=== PATIENT | female | born 1965 | race Caucasian/White ===

== ENCOUNTER 2016-07-11 07:01 | Day surgery (SDC) | payer MEDICARE, OTHER ==
[~2016-07-11 07:01] MED LIST: LACTATED RINGERS 1,000 ML IV SCH; LIDOCAINE 1% 20 ML VIAL (10MG/ML) FOR IV START INTRADERMA PRN
[2016-07-11 07:24] VITALS: TEMP 97.4
[2016-07-11] MEDS ORDERED: PROPOFOL 10 MG/ML 20 ML VIAL IV ONE (07:35)
[2016-07-11] MEDS ORDERED: ePHEDrine 50 MG/ML 1 ML AMP ONE (07:35)
[2016-07-11] MEDS ORDERED: LIDOCAINE 1% INJ 10MG/ML (20 ML MDV) ONE (07:35)
--- NOTE | 2016-07-11 07:51 | P.GSHP ---
History of Present Illness H&P Date: 07/11/16 CHIEF COMPLAINT: Colon screen HISTORY OF PRESENT ILLNESS: The patient is a 50-year-old female who presents for colon screen. Lower endoscopy was offered for further evaluation and management. PAST MEDICAL HISTORY: Please see list. PAST SURGICAL HISTORY: Please see list. MEDICATIONS: Please see list. ALLERGIES: Please see list. SOCIAL HISTORY: No illicit drug use FAMILY HISTORY: No reports of Crohn disease or ulcerative colitis. REVIEW OF ORGAN SYSTEMS: CONSTITUTIONAL: No reports of fevers or chills. PHYSICAL EXAM: VITAL SIGNS: Stable GENERAL: Well-developed pleasant in no acute distress. HEENT: No scleral icterus. Extraocular movements grossly intact. Moist buccal mucosa. NECK: Supple without lymphadenopathy. CHEST: Unlabored respirations. Equal bilateral excursions. CARDIOVASCULAR: Regular rate and rhythm. Distal 2+ pulses. ABDOMEN: Soft, nontender, nondistended. MUSCULOSKELETAL: No clubbing, cyanosis, or edema. ASSESSMENT: 1. Colon screen. PLAN: 1. Recommend proceeding with a lower endoscopy Past Medical History Past Medical History: Hyperlipidemia, Hypertension Additional Past Medical History / Comment(s): Polycystic Ovarian Disease, TMJ, tinnitus History of Any Multi-Drug Resistant Organisms: None Reported Past Surgical History: Bariatric Surgery, Breast Surgery, Tonsillectomy Additional Past Surgical History / Comment(s): LAB BAND; lipoma removed from her back, moles removed from her breast Past Anesthesia/Blood Transfusion Reactions: No Reported Reaction Past Psychological History: Anxiety, Bipolar, Depression, Panic Disorder Smoking Status: Light tobacco smoker Past Alcohol Use History: None Reported Additional Past Alcohol Use History / Comment(s): OCCASIONAL SMOKES 1-2 CIG PER MONTH. Past Drug Use History: None Reported Additional Drug Use History / Comment(s): Pt. denies substance abuse. - Past Family History Mother Family Medical History: Cancer Additional Family Medical History / Comment(s): skin and uterine cancer Medications and Allergies Home Medications Medication Instructions Recorded Confirmed Type lamoTRIgine [LaMICtal] 200 mg PO BID 07/20/13 07/11/16 History [place]-3 Fatty Acids/Fish Oil [Fish 1 tab PO DAILY 03/24/14 07/11/16 History Oil 1,000 mg Softgel] Lipitor Unknown Dose 20 mg PO HS 07/06/16 07/11/16 History Losartan/Hydrochlorothiazide 1 tab PO QAM 07/06/16 07/11/16 History [Losartan-Hctz 100-25 mg Tab] Multivitamins, Thera [Multivitamin 1 tab PO DAILY 07/06/16 07/11/16 History (formulary)] OLANZapine [ZyPREXA] 12.5 mg PO HS 07/06/16 07/11/16 History Sertraline [Zoloft] 125 mg PO HS 07/06/16 07/11/16 History Topiramate [Topamax] 75 mg PO BID 07/06/16 07/11/16 History Allergies Allergy/AdvReac Type Severity Reaction Status Date / Time influenza virus vaccine, Allergy Swelling Verified 07/06/16 15:35 specific [influenza virus vacc,specific] ciprofloxacin [From Cipro] AdvReac BLOOD IN Verified 07/06/16 16:02 STOOL Surgical - Exam Vital Signs Temp Pulse Resp BP Pulse Ox 97.4 F L 93 18 105/74 95 07/11/16 07:23 07/11/16 07:23 07/11/16 07:23 07/11/16 07:23 07/11/16 07:23
--- NOTE | 2016-07-11 08:10 | P.PCN ---
Date of Procedure: 07/11/16 Preoperative Diagnosis: Postoperative Diagnosis: Procedure(s) Performed: Implants: Indications for Procedure: Operative Findings: Description of Procedure: PREOPERATIVE DIAGNOSIS: Colonoscopy screening. POSTOPERATIVE DIAGNOSIS: Colonoscopy screening. Diverticulosis, scattered. Cecal polyp OPERATION: Colonoscopy to the ileocecal valve and appendiceal orifice. Colonoscopy with cold forceps biopsy along the cecum. SURGEON: Alejandrina Mast MD. ANESTHESIA: MAC. INDICATIONS: The patient is a 50-year-old female who presents for colonoscopy screening. Benefits and risks were described and informed consent was obtained. DESCRIPTION OF PROCEDURE: The patient had undergone Gatorade, MiraLAX and Dulcolax prep. She had been brought into the operating room and laid in the left lateral decubitus position. After adequate intravenous sedation, the rectum was examined with 2% lidocaine jelly. No external hemorrhoids were encountered. The rectal tone was within normal limits. No lesions were palpated in the rectal vault. An Olympus colonoscope was advanced until the ileocecal valve and appendiceal orifice were clearly viewed. The prep was excellent with clear visualization of the mucosal folds. The scope was removed with visualization of each mucosal fold. Scattered diverticulosis was encountered. Hyperplastic cecal polyp 3-mm along the cecum was cold forceps biopsy to completion. No evidence of focal colitis was found. Retroflexion of the scope demonstrated grade 1 internal hemorrhoids without active bleeding or inflammation. The colon was desufflated. The patient had tolerated the procedure well. Withdrawal time was over 6 minutes. FINDINGS: Internal hemorrhoids, grade 1 No external prolapsed hemorrhoids. No arteriovenous malformations. Hyperplastic cecal polyp 3-mm along the cecum was cold forceps biopsy to completion. No focal colitis. RECOMMENDATIONS: Lower endoscopy in 5 to 8 years per screening guidelines, 2021. Plan - Discharge Summary New Discharge Prescriptions: No Action lamoTRIgine [LaMICtal] 200 mg PO BID [place]-3 Fatty Acids/Fish Oil [Fish Oil 1,000 mg Softgel] 1 tab PO DAILY Melatonin 3 mg PO HS #15 tab Sertraline [Zoloft] 125 mg PO HS Topiramate [Topamax] 75 mg PO BID OLANZapine [ZyPREXA] 12.5 mg PO HS Multivitamins, Thera [Multivitamin (formulary)] 1 tab PO DAILY Losartan/Hydrochlorothiazide [Losartan-Hctz 100-25 mg Tab] 1 tab PO QAM Lipitor Unknown Dose 20 mg PO HS Discharge Medication List lamoTRIgine [LaMICtal] 200 mg PO BID 07/20/13 [History] [place]-3 Fatty Acids/Fish Oil [Fish Oil 1,000 mg Softgel] 1 tab PO DAILY [History] Melatonin 3 mg PO HS #15 tab 04/07/14 [Rx] Lipitor Unknown Dose 20 mg PO HS 07/06/16 [History] Losartan/Hydrochlorothiazide [Losartan-Hctz 100-25 mg Tab] 1 tab PO QAM [History] Multivitamins, Thera [Multivitamin (formulary)] 1 tab PO DAILY 07/06/16 [History ] OLANZapine [ZyPREXA] 12.5 mg PO HS 07/06/16 [History] Sertraline [Zoloft] 125 mg PO HS 07/06/16 [History] Topiramate [Topamax] 75 mg PO BID 07/06/16 [History] Patient Instructions/Handouts: *[facility] - (Anesthesia) Endoscopy Discharge Instructions, Colonoscopy (DC)
[2016-07-11 08:17] VITALS: RESP 16
[2016-07-11 08:44] VITALS: BP 106/75; PULSE 67
== END 2016-07-11 09:19 | disposition home or self-care (01) ==
LOC: ORWHC2ENDO 07:01
PROVIDERS: ATTEND Surgery Plastic and Reconstructive Surgery
DX: Z12.11 Encounter for screening for malignant neoplasm of colon (principal); K63.5 Polyp of colon; K57.30 Diverticulosis of large intestine without perforation or abscess without bleeding; K64.0 First degree hemorrhoids; K21.9 Gastro-esophageal reflux disease without esophagitis; I10 Essential (primary) hypertension; E78.5 Hyperlipidemia, unspecified; F41.9 Anxiety disorder, unspecified; F32.9 Major depressive disorder, single episode, unspecified; E28.2 Polycystic ovarian syndrome; F17.210 Nicotine dependence, cigarettes, uncomplicated; Z79.899 Other long term (current) drug therapy; Z88.1 Allergy status to other antibiotic agents; Z88.7 Allergy status to serum and vaccine
CPT/HCPCS: 81025; 88305; 45380; J2001; J2704

== ENCOUNTER → 2016-12-20 | Outpatient (CLI) | payer MEDICARE ==
--- NOTE | 2016-12-21 13:58 | MM ---
Reason for exam: screening (asymptomatic). Last mammogram was performed 1 year ago. Physical Findings: A clinical breast exam by your physician is recommended on an annual basis and results should be correlated with mammographic findings. MG 3D Screening Mammo W/Cad Bilateral CC and MLO view(s) were taken. Prior study comparison: December 06, 2015, bilateral MG 3d screening mammo w/cad. October 26, 2014, bilateral MG screening mammo w CAD. The breast tissue is heterogeneously dense. This may lower the sensitivity of mammography. No suspicious abnormality. No significant changes when compared with prior studies. ASSESSMENT: Negative, BI-RAD 1 RECOMMENDATION: Routine screening mammogram of both breasts in 1 year.
== END | disposition home or self-care (01) ==
LOC: RADMAMWWP 13:49
PROVIDERS: ATTEND Family Medicine
DX: Z12.31 Encounter for screening mammogram for malignant neoplasm of breast (principal)
CPT/HCPCS: 77063; G0202

== ENCOUNTER → 2017-12-24 | Outpatient (CLI) | payer MEDICARE ==
--- NOTE | 2017-12-26 10:39 | MM ---
Reason for exam: screening (asymptomatic). Last mammogram was performed 1 year ago. History: Patient is nulliparous. MG 3D Screening Mammo W/Cad Bilateral CC and MLO view(s) were taken. Prior study comparison: December 20, 2016, bilateral MG 3d screening mammo w/cad. December 06, 2015, bilateral MG 3d screening mammo w/cad. No significant changes when compared with prior studies. ASSESSMENT: Benign, BI-RAD 2 RECOMMENDATION: Routine screening mammogram of both breasts in 1 year.
== END ==
LOC: RADMAMWWP 11:34
PROVIDERS: ATTEND Family Medicine
DX: Z12.31 Encounter for screening mammogram for malignant neoplasm of breast (principal)
CPT/HCPCS: 77063; 77067

== ENCOUNTER → 2019-01-19 | Outpatient (CLI) | payer MEDICARE, OTHER ==
--- NOTE | 2019-01-20 08:42 | MM ---
Reason for exam: screening (asymptomatic). Last mammogram was performed 1 year and 1 month ago. History: Patient is nulliparous. Physical Findings: A clinical breast exam by your physician is recommended on an annual basis and results should be correlated with mammographic findings. MG 3D Screening Mammo W/Cad Bilateral CC and MLO view(s) were taken. Prior study comparison: December 24, 2017, bilateral MG 3d screening mammo w/cad. December 20, 2016, bilateral MG 3d screening mammo w/cad. The breast tissue is heterogeneously dense. This may lower the sensitivity of mammography. Finding #1: Questionable architectural distortion in the upper inner quadrant of the left breast. Finding #2: There are typically benign calcifications in the right breast. ASSESSMENT: Incomplete: need additional imaging evaluation, BI-RAD 0 RECOMMENDATION: Special view mammogram of the left breast. If lesion persists on supplemental views, image directed ultrasound is recommended. [facility] will attempt to contact patient to return for supplemental views and ultrasound if indicated.
== END | disposition home or self-care (01) ==
LOC: RADMAMWWP 15:07
PROVIDERS: ATTEND Family Medicine
DX: Z12.39 Encounter for other screening for malignant neoplasm of breast (principal)
CPT/HCPCS: 77063; 77067

== ENCOUNTER → 2019-01-27 | Outpatient (CLI) | payer MEDICARE, OTHER ==
[2019-01-27 14:46] VITALS: BP 135/85; PULSE 85; RESP 16; TEMP 99.2; BMI 35.5
--- NOTE | 2019-01-27 21:11 | P.BASOAP ---
Subjective Progress Note Date: 01/27/19 Principal diagnosis: Morbid obesity Patient returns for evaluation. Patient underwent lap band in 2007 and sleeve gastrectomy September 2016. She was last seen in August. She has gained weight recently. She states it's related to bad habits with eating fast food in sweets. General a recent carpal tunnel release. Acids. Rarely with reflux symptoms. No nausea or vomiting. No pain. Objective - Vital Signs Vital signs: Vital Signs Temp 99.2 F 01/27/19 14:41 Pulse 85 01/27/19 14:41 Resp 16 01/27/19 14:41 BP 135/85 01/27/19 14:41 Pulse Ox Intake & Output 01/27/19 01/27/19 01/28/19 06:59 18:59 06:59 Weight 102.965 kg - Exam Abdomen: Soft, nontender, nondistended Assessment/Plan (1) Morbid obesity Narrative/Plan: Patient overall doing fairly well. She will meet with dietitian today. Continue dietary and exercise regimen. Follow-up 2 months. Plan: Date: 01/27/19 Initial Weight: 127.006 kg Initial BMI: 43.8 Current Weight: 102.965 kg Current BMI: 35.5 Type of Surgery: Vertical Sleeve Gastrectomy Total Volume in Band: Previous Volume: Volume Removed: Volume Added: Band Size:
== END | disposition home or self-care (01) ==
LOC: BARWHC3 13:53
PROVIDERS: ATTEND Surgery
DX: E66.01 Morbid (severe) obesity due to excess calories (principal); Z68.35 Body mass index [BMI] 35.0-35.9, adult
CPT/HCPCS: 97802; G0463; 99211

== ENCOUNTER → 2019-02-02 | Outpatient (CLI) | payer MEDICARE, OTHER ==
--- NOTE | 2019-02-02 10:22 | MM ---
Reason for exam: additional evaluation requested from abnormal screening. Last mammogram was performed less than 1 month ago. History: Patient is nulliparous. Physical Findings: Nurse did not find any significant physical abnormalities on exam. MG 3D Work Up W/Cad LT Spot compression CC and LM view(s) were taken of the left breast. Prior study comparison: January 19, 2019, bilateral MG 3d screening mammo w/cad. December 24, 2017, bilateral MG 3d screening mammo w/cad. There are scattered fibroglandular densities. The possible medial distortion does not persist. These results were verbally communicated with the patient and result sheet given to the patient on 02/02/19. ASSESSMENT: Negative, BI-RAD 1 RECOMMENDATION: Return to routine screening mammogram schedule for both breasts.
== END | disposition home or self-care (01) ==
LOC: RADMAMWWP 08:51
PROVIDERS: ATTEND Family Medicine
DX: R92.8 Other abnormal and inconclusive findings on diagnostic imaging of breast (principal)
CPT/HCPCS: 77065; G0279; 77061

== ENCOUNTER → 2019-11-11 | Outpatient (CLI) | payer MEDICARE, OTHER ==
[2019-11-11 08:54] LABS: Basophils # (A) 0.1 k/uL (0-0.2); Basophils % (A) 1 %; Eosinophils % (A) 0 %; HCT 42.7 % (34.0-46.0); HGB 13.9 gm/dL (11.4-16.0); Lymphocytes # (A) 1.2 k/uL (1.0-4.8); Lymphocytes % (A) 29 %; MCHC 32.5 g/dL (31.0-37.0); MCV 92.4 fL (80.0-100.0); Mean Platelet Volume 7.7; Monocytes # (A) 0.2 k/uL (0-1.0); Monocytes % (A) 5 %; Neutrophils # (A) 2.7 k/uL (1.3-7.7); Neutrophils % (A) 64 %; Platelet Count 163 k/uL (150-450); RBC 4.62 m/uL (3.80-5.40); RDW 12.5 % (11.5-15.5); WBC 4.2 k/uL (3.8-10.6)
[2019-11-11 09:03] LABS: INR 0.9 (<1.2); Partial Thromboplastin Time 23.6 sec (22.0-30.0); Prothrombin Time 9.8 sec (9.0-12.0)
[2019-11-11 09:23] LABS: Appearance,Urine Cloudy (Clear); Bacteria,Urine Rare /hpf; Bilirubin,Urine Negative (Negative); Blood,Urine Negative (Negative); Color,Urine Yellow; Glucose,Urine (UA) Negative (Negative); Ketones,Urine Negative (Negative); Leukocyte Esterase,Urine Trace (Negative); Mucus,Urine Rare /hpf; Nitrite,Urine Negative (Negative); PH, Urine 8.5 (5.0-8.0); Protein,Urine Negative (Negative); RBC,Urine 3 /hpf (0-5); Specific Gravity,Urine 1.016 (1.001-1.035); Squamous Epithelial Cell,Urine 1 /hpf (0-4); Urobilinogen,Urine <2.0 mg/dL (<2.0); WBC,Urine 3 /hpf (0-5)
[2019-11-11 09:28] LABS: Calcium 9.2 mg/dL (8.4-10.2); Potassium 4.9 mmol/L (3.5-5.1)
--- NOTE | 2019-11-11 09:37 | XR ---
EXAMINATION TYPE: XR chest 2V DATE OF EXAM: 11/11/2019 COMPARISON: None HISTORY: Z01.818, herniated nucleus pulposus C5-6 TECHNIQUE: Frontal and lateral views of the chest are obtained. FINDINGS: There is no focal air space opacity, pleural effusion, or pneumothorax seen. The cardiac silhouette size is within normal limits. The osseous structures are intact, there is thoracic spond ylosis. IMPRESSION: No acute cardiopulmonary process.
== END | disposition home or self-care (01) ==
LOC: LABPAT 07:18
PROVIDERS: ATTEND Orthopaedic Surgery Orthopaedic Surgery of the Spine
DX: Z01.818 Encounter for other preprocedural examination (principal); Z51.81 Encounter for therapeutic drug level monitoring; M50.222 Other cervical disc displacement at C5-C6 level; Z79.01 Long term (current) use of anticoagulants
CPT/HCPCS: 36415; 71046; 80048; 81001; 85025; 85610; 85730

== ENCOUNTER 2019-11-18 08:19 | Day surgery (SDC) | payer MEDICARE, OTHER ==
[2019-11-11 13:18] VITALS: BMI 38.0
[~2019-11-18 08:19] MED LIST changes: -LIDOCAINE 1% 20 ML VIAL (10MG/ML) FOR IV START INTRADERMA PRN; +MIDAZOLAM 2 MG/2 ML VIAL IV PRN; +ceFAZolin 1,000 MG in SODIUM CHLORIDE 0.9% IRRIGATIO 1,000 ML IRRIGATION ONE
[2019-11-18] MEDS: LIDOCAINE 1% (10MG/ML) FOR IV START INTRADERMA PRN ×2 (09:20→09:33)
[2019-11-18] MEDS: ONDANSETRON 4 MG/2 ML VIAL IVP ONE ×2 (09:20→09:33)
[2019-11-18] MEDS: DEXAMETHASONE SOD PHOSPHATE 10 MG/ML 1 ML VIAL IV ONE ×2 (09:33→13:32)
[2019-11-18] MEDS ORDERED: MIDAZOLAM 2 MG/2 ML VIAL ONE (10:08)
[2019-11-18] MEDS ORDERED: PHENYLEPHRINE-0.9% NACL SYG 1 MG/10 ML SYRINGE ONE (10:08)
[2019-11-18] MEDS ORDERED: PROPOFOL 10 MG/ML 20 ML VIAL IV ONE (10:08)
[2019-11-18] MEDS ORDERED: LIDOCAINE 1% INJ 10MG/ML (20 ML MDV) ONE (10:08)
[2019-11-18] MEDS ORDERED: fentaNYL (PF) 50 MCG/ML 2 ML AMP ONE ×2 (10:08)
[2019-11-18] MEDS ORDERED: SUCCINYLCHOLINE CHLORIDE 100 MG/5 ML SYR IV ONE (10:08)
[2019-11-18] MEDS ORDERED: ePHEDrine SULFATE/0.9% NACL/PF 50 MG/5 ML SYRINGE IV ONE (10:08)
[2019-11-18] MEDS ORDERED: GELATIN SPONGE,ABSORB (LARGE) 1 EACH SPONGE TOPICAL ONE (10:13)
[2019-11-18] MEDS ORDERED: LIDOCAINE 0.5%-EPI 1:200,000 50 ML VIAL SQ ONE (10:13)
[2019-11-18] MEDS ORDERED: THROMBIN (BOVINE) 5,000 UNIT VIAL TOPICAL ONE (10:13)
[2019-11-18] MEDS ORDERED: LACTATED RINGERS 1,000 ML IV ONE (11:29)
[2019-11-18] MEDS ORDERED: ACETAMINOPHEN TAB 325 MG TAB PO PRN (11:50)
[2019-11-18] MEDS ORDERED: ONDANSETRON 4 MG/2 ML VIAL IVP PRN (11:50)
[2019-11-18] MEDS ORDERED: HYDROmorphone 0.5 MG/0.5 ML SYRINGE IVP PRN (11:50)
[2019-11-18] MEDS ORDERED: BENZOCAINE/MENTHOL LOZENG 1 EACH LOZENGE MUCOUS MEM PRN (11:50)
[2019-11-18] MEDS ORDERED: HYDROcodone/APAP 5-325MG 1 EACH TAB PO PRN (11:50)
--- NOTE | 2019-11-18 11:50 | P.OP ---
Date of Procedure: 11/18/19 Preoperative Diagnosis: Herniated nucleus pulposis C5 6, right upper extremity radiculopathy, right upper extremity weakness, degenerative disc disease, neck pain Postoperative Diagnosis: Same Anesthesia: GETA Pathology: none sent Condition: stable Disposition: PACU Description of Procedure: BRIEF OPERATIVE NOTE Preoperative Diagnosis:Herniated nucleus pulposis C5 6, right upper extremity radiculopathy, right upper extremity weakness, degenerative disc disease, neck pain Postoperative Diagnosis:Herniated nucleus pulposis C5 6, right upper extremity radiculopathy, right upper extremity weakness, degenerative disc disease, neck pain Procedure: Anterior cervical decompression with discectomy and fusion C5 6 Placement of interbody graft C5 6 Application of anterior cervical plate C5 6 Surgeon: Dr. Sylvester [employer] Operator: Selma Lisa is present throughout the entire the case persistence during positioning, dissection, exposure, visualization, and all crucial elements of the case as well as closure. Anesthesia: General anesthesia Estimated blood loss: Approximately 50 mL Complications: None apparent Components implanted: K2M [place] anterior cervical plate with screws and VIkos interbody allograft bone graft Disposition: To recovery room in good stable condition. OPERATIVE INDICATIONS The patient has had long-standing issues in their neck and upper extremities. His been having significant worsening of her upper extremity particularly on the right side with some tingling and weakness. She is found have a large disc herniations at C5 6 with correlate well with her neck and upper extremity symptoms. She is not having any prolonged benefit despite aggressive conservative care. The patient has been through conservative treatment. We discussed various treatment options including surgery, and the patient wishes to proceed with surgery We discussed the risk, patient's alternatives and benefits of surgery including but not limited to, risk of bleeding risk of infection, risk of need for further surgery, risk of decreased, loss of motion, muscle function, malunion nonunion, hardware failure, nerve damage, paralysis, heart attack, and . OPERATIVE SUMMARY After discussing all the risks, patient alternatives and benefits at length, the patient elected to proceed with surgical intervention, signed informed consent, and presented for their procedure. The patient was seen and examined in the preoperative holding area and the surgical site was marked. The patient was given antibiotics and brought to the operating room. The patient was positioned on the operating room table in a supine position being careful to pad any bony prominences and pressure points. The patient was sedated and intubated by anesthesia in standard fashion. Once the airway and C- spine were stabilized the patient's arms were padded and tucked at her side, with her shoulders gently taped. The head was placed in a donut pad with the neck in good neutral alignment and position. We were careful to maintain the patient's cervical spine and good neutral alignment and position throughout. The patient was prepped and draped in a normal standard fashion. An appropriate timeout and keystone protocol performed. We were able to proceed with the surgery. The local wound area was infiltrated with local anesthetic. An incision was made transversely approximately 2-1/2 cm over the appropriate levels at C6. Dissection was taken down subcutaneously to the level of the platysma which was split in line with its fibers. Dissection was taken with a carotid approach, with the trachea and esophagus medial and the carotid sheath laterally. We dissected down to the anterior surface of the vertebral bodies. Intraoperative x-ray was taken which showed a marker at the appropriate level at C5 6 with the C5 vertebrae marked. With the appropriate level positively confirmed, at C5 6 we were able to proceed with discectomy at the appropriate levels. All of the operative levels were exposed appropriately. The patient had all their twitches back, and there was no evidence of recurrent laryngeal issue. The wound was copiously irrigated and suctioned dry as had been done periodically throughout the case. At the appropriate level of C5 6 I established an annulotomy with an 11 blade scalpel. A discectomy was performed with a combination of pituitary rongeurs, curettes, a high-speed bur, and Kerrison rongeurs. The posterior longitudinal ligament was taken down as were any posterior osteophytes. Note was made of disc herniation with disc protrusion and posterior spurring. These issues were removed with the decompression and discectomy. This gave good central and bilateral foraminal decompression. There is no evidence of any dural tear or leak. The endplates were prepared with a high-speed bur. With the endplates in good parallel position, I was able to size for the appropriate size interbody graft. The wound was irrigated and suctioned dry the graft was prepared and malleted into position. It had good alignment and position with the anterior surface flush with the anterior surface of the vertebral bodies of C5 6. With the grafts intact, I was able to measure and contour and appropriate sized plate. The plate was positioned at the midline over the appropriate levels of C5 6. Screw holes were established with a hand drill and drill guide. Screws were placed in good alignment and position with excellent bony purchase. They were seated under the locking device. The construct was checked and found to be stable. Intraoperative x-ray was taken which showed good alignment and position of the implants at the appropriate levels. There was no evidence of any dural tear or leak. Good hemostasis was maintained. The wound was copiously irrigated and suctioned dry as had been done periodically throughout the case. The platysma was closed with absorbable suture. The subcutaneous tissue was closed. The subcuticular tissue was closed with absorbable suture. The wound was cleaned and dried and dressed appropriately. A soft cervical collar was placed appropriately. The patient was woken up by anesthesia, extubated, transferred back gently to their hospital bed and brought to the recovery room in good stable condition. The patient will be admitted to the hospital for appropriate postoperative care, medical management and monitoring. We will continue to follow them closely about the postoperative course.
[2019-11-18] MEDS ORDERED: SODIUM CHLORIDE 0.9% 1,000 ML IV SCH (12:00)
[2019-11-18 12:13] VITALS: RESP 16
[2019-11-18] MEDS: HYDROmorphone 0.5 MG/0.5 ML SYRINGE IVP PRN ×4 (12:17→12:40)
--- NOTE | 2019-11-18 13:46 | FL ---
EXAMINATION TYPE: FL guidance operating room, XR cervical spine 1V, XR cervical spine 1V DATE OF EXAM: 11/18/2019 CLINICAL HISTORY: Needle placement and hardware placement TECHNIQUE: Fluoroscopy. COMPARISON: None. FINDINGS: Fluoroscopic guidance was provided during procedure performed by Dr. Sylvester. A total of 1 seconds of fluoroscopic time was utilized during the procedure and 2 crosstable lateral spot images a cquired. Please see operative report for additional details. IMPRESSION: As Above.
[2019-11-18 15:04] VITALS: BP 107/72; PULSE 102; TEMP 98.1
[2019-11-18] MEDS ORDERED: GABAPENTIN 300 MG CAP PO SCH (16:00)
[2019-11-18] MEDS ORDERED: methocarbamoL 750 MG TAB PO SCH (16:00)
[2019-11-18] MEDS ORDERED: ceFAZolin 3 GM in SODIUM CHLORIDE 0.9% 100 ML IVPB SCH (18:00)
[2019-11-18] MEDS ORDERED: POTASSIUM CITRATE 10 MEQ TABLET.ER PO SCH (21:00)
[2019-11-18] MEDS ORDERED: QUEtiapine 100 MG TAB PO SCH (21:00)
[2019-11-18] MEDS ORDERED: lamoTRIgine 100 MG TAB PO SCH (21:00)
[2019-11-19] MEDS ORDERED: LOSARTAN 50 MG TAB PO SCH (09:00)
[2019-11-19] MEDS ORDERED: SOY ISOFLA PO SCH (09:00)
[2019-11-19] MEDS ORDERED: SERTRALINE 25 MG TAB PO SCH (09:00)
[2019-11-19] MEDS ORDERED: [UNRECOGNIZED DRUG - OTHER] PO SCH (09:00)
[2019-11-19] MEDS ORDERED: SERTRALINE 100 MG TAB PO SCH (09:00)
[2019-11-19] MEDS ORDERED: MULTIVITAMINS, THERA 1 EACH TAB PO SCH (09:00)
[2019-11-19] MEDS ORDERED: BLK COHOSH PO SCH (09:00)
[2019-11-19] MEDS ORDERED: MAG BARK PO SCH (09:00)
[2019-11-19] MEDS ORDERED: LURASIDONE 20 MG TAB PO SCH (09:00)
== END 2019-11-18 19:10 | disposition home or self-care (01) ==
LOC: OR 08:19 → 6NMEDSUR 12:32 → OR 19:10
PROVIDERS: ATTEND Orthopaedic Surgery Orthopaedic Surgery of the Spine
DX: M50.122 Cervical disc disorder at C5-C6 level with radiculopathy (principal); I10 Essential (primary) hypertension; F31.9 Bipolar disorder, unspecified; K21.9 Gastro-esophageal reflux disease without esophagitis; M79.7 Fibromyalgia; E78.5 Hyperlipidemia, unspecified; M19.90 Unspecified osteoarthritis, unspecified site; Z88.1 Allergy status to other antibiotic agents; Z79.899 Other long term (current) drug therapy; Z98.84 Bariatric surgery status; Z98.890 Other specified postprocedural states; Z87.891 Personal history of nicotine dependence; Z83.3 Family history of diabetes mellitus; Z82.49 Family history of ischemic heart disease and other diseases of the circulatory system; Z82.69 Family history of other diseases of the musculoskeletal system and connective tissue
CPT/HCPCS: 81025; 72020; 22551; 22853; 22845; C1713; C1762; J2250; J0690 ×2; J2405; J2001; J3010; J2370; J0330; J2704; J1170; 86850; 86900; 86901

== ENCOUNTER → 2020-02-26 | Outpatient (CLI) | payer MEDICARE, OTHER ==
--- NOTE | 2020-02-29 08:30 | MM ---
Reason for exam: screening (asymptomatic). Last mammogram was performed 1 year and 1 month ago. History: Patient is postmenopausal and is nulliparous. Took hormonal contraceptives for 12 years beginning at age 14. Physical Findings: A clinical breast exam by your physician is recommended on an annual basis and results should be correlated with mammographic findings. MG 3D Screening Mammo W/Cad Bilateral CC and MLO view(s) were taken. XCCL view(s) were taken of the left breast. Prior study comparison: January 19, 2019, bilateral MG 3d screening mammo w/cad. December 24, 2017, bilateral MG 3d screening mammo w/cad. December 20, 2016, bilateral MG 3d screening mammo w/cad. There is chronic nodularity in the right breast anteriorly. No significant changes when compared with prior studies. ASSESSMENT: Benign, BI-RAD 2 RECOMMENDATION: Routine screening mammogram of both breasts in 1 year.
== END | disposition home or self-care (01) ==
LOC: RADMAMWWP 08:25
PROVIDERS: ATTEND Family Medicine
DX: Z12.31 Encounter for screening mammogram for malignant neoplasm of breast (principal)
CPT/HCPCS: 77063; 77067

== ENCOUNTER → 2020-10-06 | Outpatient (CLI) | payer MEDICARE, OTHER ==
--- NOTE | 2020-10-06 15:17 | US ---
EXAMINATION TYPE: US pelvis complete transvag DATE OF EXAM: 10/06/2020 COMPARISON: NONE CLINICAL HISTORY: 55-year-old female N93.0 postcoital and contact bleeding. TECHNIQUE: Transabdominal sonographic images of the pelvis were acquired. 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 Uterus: Anteverted. Small cervical nabothian cysts. The myometrium is heterogeneous. Rounded iso echoic area along the left uterine fundus measuring 2.1 x 1.8 x 1.9 cm 2. Endometrium: wnl, limited visualization 3. Right Ovary: follicle seen 4. Left Ovary: simple cystic lesion = 2.1 x 1.7 x 1.5 cm. Some internal artifacts are noted. 5. Bilateral Adnexa: no free fluid 6. Posterior cul-de-sac: no free fluid IMPRESSION: 1. The endometrial stripe is thin at 3 mm. 2. A rounded area along the left uterine fundus measures 2.1 cm, possible focal fibroid. Ultrasound t o reassess in 3 months. 3. Simple cyst within the left ovary measures 2.1 cm. In a postmenopausal female, annual ultrasound s urveillance is recommended.
== END | disposition home or self-care (01) ==
LOC: RADUSWWP 13:03
PROVIDERS: ATTEND Family Medicine
DX: N83.292 Other ovarian cyst, left side (principal); N95.9 Unspecified menopausal and perimenopausal disorder; N93.0 Postcoital and contact bleeding
CPT/HCPCS: 76830; 76856

== ENCOUNTER → 2021-06-08 | Outpatient (CLI) | payer MEDICARE, OTHER ==
--- NOTE | 2021-06-09 14:02 | MM ---
Reason for exam: screening (asymptomatic). Last mammogram was performed 1 year and 3 months ago. History: Patient is postmenopausal and is nulliparous. Took hormonal contraceptives for 12 years beginning at age 14. Physical Findings: A clinical breast exam by your physician is recommended on an annual basis and results should be correlated with mammographic findings. MG 3D Screening Mammo W/Cad Bilateral CC and MLO view(s) were taken. Prior study comparison: February 26, 2020, bilateral MG 3d screening mammo w/cad. February 02, 2019, left breast MG 3d work up w/cad LT. There are scattered fibroglandular densities. No significant changes when compared with prior studies. ASSESSMENT: Benign, BI-RAD 2 RECOMMENDATION: Routine screening mammogram of both breasts in 1 year.
== END | disposition home or self-care (01) ==
LOC: RADMAMWWP 08:36
PROVIDERS: ATTEND Family Medicine
DX: Z12.31 Encounter for screening mammogram for malignant neoplasm of breast (principal); Z78.0 Asymptomatic menopausal state
CPT/HCPCS: 77063; 77067

== ENCOUNTER → 2021-10-27 | Outpatient (CLI) | payer MEDICARE, OTHER ==
[~2021-10-27] MED LIST changes: +COSYNTROPIN 0.25 MG VIAL IVP NR; -LACTATED RINGERS 1,000 ML IV SCH; -MIDAZOLAM 2 MG/2 ML VIAL IV PRN; +SODIUM CHLORIDE 0.9% 500 ML 500 ML in EMPTY BAG 1 BAG IV PRN; -ceFAZolin 1,000 MG in SODIUM CHLORIDE 0.9% IRRIGATIO 1,000 ML IRRIGATION ONE
[2021-10-27 12:03] VITALS: BP 117/83; PULSE 86; RESP 16; TEMP 98.2
== END | disposition home or self-care (01) ==
LOC: PROCWHC3 11:37
PROVIDERS: ATTEND Family Medicine
DX: R58 Hemorrhage, not elsewhere classified (principal)
CPT/HCPCS: 82533; 82024; 96374; J0834

== ENCOUNTER → 2022-05-22 | Outpatient (CLI) | payer MEDICARE, OTHER ==
[2022-05-22 13:29] VITALS: BP 134/80; PULSE 104; RESP 16; TEMP 98.2; BMI 39.6
--- NOTE | 2022-05-22 16:27 | P.BASOAP ---
Subjective Progress Note Date: 05/22/22 Principal diagnosis: Morbid obesity 56-year-old female known to our service. Underwent lap band to sleeve conversion in 2017. She was last seen January 2019. Patient states she has gained more weight. She still is making better choices with more highly concentrated caloric foods such as Sharlene. Says she does not feel motivated anymore. She is seeing a dietitian outside of the bariatric center. Objective - Vital Signs Vital signs: Vital Signs Temp 98.2 F 05/22/22 13:27 Pulse 104 H 05/22/22 13:27 Resp 16 05/22/22 13:27 BP 134/80 05/22/22 13:27 Pulse Ox FiO2 Intake & Output 05/21/22 05/22/22 05/22/22 18:59 06:59 18:59 Weight 114.759 kg - Exam Abdomen: Soft, nontender, nondistended Assessment/Plan (1) Morbid obesity Narrative/Plan: 56-year-old female with morbid obesity. Patient reportedly has not done well with previous lap band and subsequent sleeve conversion from await standpoint. We discussed options of possible duodenal switch for gastric bypass. She would like to discuss this further with tertiary bariatric center. We'll make arrangements for patient to be seen at [facility] to discuss options further. Plan: Date: 05/22/22 Initial Weight: 127.006 kg Initial BMI: 43.8 Current Weight: 114.759 kg Current BMI: 39.6 Type of Surgery: Vertical Sleeve Gastrectomy Total Volume in Band: Previous Volume: Volume Removed: Volume Added: Band Size:
== END ==
LOC: BARWHC3 13:13
PROVIDERS: ATTEND Surgery
DX: E66.01 Morbid (severe) obesity due to excess calories (principal); Z46.51 Encounter for fitting and adjustment of gastric lap band; Z68.39 Body mass index [BMI] 39.0-39.9, adult; Z88.1 Allergy status to other antibiotic agents; F17.200 Nicotine dependence, unspecified, uncomplicated
CPT/HCPCS: 99211

== ENCOUNTER → 2022-05-29 | Outpatient (CLI) | payer MEDICARE, OTHER ==
--- NOTE | 2022-05-29 15:15 | US ---
EXAMINATION TYPE: US pelvis complete transvag DATE OF EXAM: 05/29/2022 COMPARISON: US CLINICAL INDICATION: Female, 56 years old with history of N83.209 UNSPECIFIED OVARIAN CYST, UNSPECIFI ED SIDE; Pt states urinary issues TECHNIQUE: Transvaginal (TV) and Transabdominal (TA) . Transabdominal sonographic images of the pel vis were acquired. Transvaginal sonographic images were medically necessary to better assess the fol lowing anatomy: Entire pelvis Date of LMP: 1 year ago EXAM MEASUREMENTS: Uterus: 6.1 x 2.7 x 3.2 cm Endometrial Stripe: 0.3 cm Right Ovary: 2.0 x 1.7 x 1.6 cm Left Ovary: 2.0 x 1.6 x 1.5 cm 1. Uterus: Anteverted Heterogeneous, Nabothian cysts in cervix 2. Endometrium: wnl 3. Right Ovary: wnl 4. Left Ovary: wnl 5. Bilateral Adnexa: wnl 6. Posterior cul-de-sac: wnl IMPRESSION: No concerning ovarian or adnexal mass on today's study.
--- NOTE | 2022-05-29 16:59 | CA ---
Transthoracic Echo Report Name: Junie Giraldo Age: 56 Gender: F : 1965 Exam Date: 05/29/2022 15:09 Exam Location: [facility] Ht (in): 67 Wt (lb): 250 Ordering Physician: Kuldeep Love DO Attending/Referring Phys: Neuro Intensivist Physician Viola Bach RDCS Procedure CPT: Indications: N83.209; R01.1 Cardiac Hx: Technical Quality: Good Contrast 1: Total Dose (mL): Contrast 2: Total Dose (mL): MEASUREMENTS (Male / Female) Normal Values 2D ECHO LV Diastolic Diameter PLAX 3.6 cm 4.2 - 5.9 / 3.9 - 5.3 cm LV Systolic Diameter PLAX 2.4 cm IVS Diastolic Thickness 1.1 cm 0.6 - 1.0 / 0.6 - 0.9 cm LVPW Diastolic Thickness 1.1 cm 0.6 - 1.0 / 0.6 - 0.9 cm LV Relative Wall Thickness 0.6 RV Internal Dim ED PLAX 2.8 cm LA Systolic Diameter LX 3.2 cm 3.0 - 4.0 / 2.7 - 3.8 cm LA Volume 45.6 cm??? 18 - 58 / 22 - 52 cm??? M-MODE Aortic Root Diameter MM 2.9 cm MV E Point Septal Separation 0.4 cm AV Cusp Separation MM 1.8 cm DOPPLER AV Peak Velocity 163.8 cm/s AV Peak Gradient 10.7 mmHg MV Area PHT 2.5 cm??? Mitral E Point Velocity 76.1 cm/s Mitral A Point Velocity 84.7 cm/s Mitral E to A Ratio 0.9 MV Deceleration Time 300.3 ms MV E' Velocity 6.9 cm/s Mitral E to MV E' Ratio 11.1 TR Peak Velocity 194.8 cm/s TR Peak Gradient 15.2 mmHg Right Ventricular Systolic Press 20.2 mmHg FINDINGS Left Ventricle Left ventricular ejection fraction is estimated at 55-60 %. Mildly increased septal wall thickness. Mildly increased posterior wall thickness. Small left ventricular cavity. Right Ventricle Normal right ventricular size and function. Right ventricular systolic pressure within normal limits. Right Atrium Normal right atrial size. Left Atrium Normal left atrial size. Mitral Valve Mitral valve thickened. No mitral stenosis, regurgitation or prolapse. Aortic Valve Trileaflet aortic valve. No aortic valve stenosis or regurgitation. Tricuspid Valve Structurally normal tricuspid valve. Trace tricuspid regurgitation. Pulmonic Valve Structurally normal pulmonic valve. No pulmonic regurgitation. Pericardium Normal pericardium. No pericardial effusion. Aorta Normal size aortic root and proximal ascending aorta. CONCLUSIONS Normal LV systolic function Previewed by: Dr. Pop Rios MD (Electronically Signed) Final Date: 29 May 2022 16:59
== END | disposition home or self-care (01) ==
LOC: RADUSWWP 14:24
PROVIDERS: ATTEND Family Medicine
DX: N83.209 Unspecified ovarian cyst, unspecified side (principal); R01.1 Cardiac murmur, unspecified
CPT/HCPCS: 76830; 76856; 93306

== ENCOUNTER → 2022-06-11 | Outpatient (CLI) | payer MEDICARE, OTHER ==
--- NOTE | 2022-06-12 10:30 | MM ---
Reason for Exam: Screening (asymptomatic). Last mammogram was performed 1 year(s) and 1 month(s) ago. Patient History: Menarche at age 13. Patient has no children. Postmenopausal. Hormonal Contraceptives for 12 years from age 14 until age 26. Risk Values: Maite 5 year model risk: 1.4%. NCI Lifetime model risk: 10.1%. Prior Study Comparison: 02/02/2019 Left Diagnostic Mammogram, [facility]. 02/26/2020 Bilateral Screening Mammogram, [facility]. 06/08/2021 Bilateral Screening Mammogram, [facility]. Tissue Density: The breast tissue is almost entirely fat. Findings: Analyzed By CAD. There is no suspicious group of microcalcifications or new suspicious mass in either breast. Overall Assessment: Negative, BI-RAD 1 Management: Screening Mammogram of both breasts in [address] [facility] will attempt to contact patient to return for supplemental views and ultrasound if indicated. Patient should continue monthly self-breast exams. A clinical breast exam by your physician is recommended on an annual basis. This exam should not preclude additional follow-up of suspicious palpable abnormalities. Note on Maite scores and lifetime risk: 1. A Maite score greater than 3% is considered moderate risk. If this is the case, consider specialist referral to assess eligibility for a risk reducing agent. 2. If overall lifetime risk for the development of breast cancer is 20% or higher, the patient may qualify for future screening with alternating mammogram and breast MRI. Electronically signed and approved by: Nikunj Khan DO
== END | disposition home or self-care (01) ==
LOC: RADMAMWWP 09:14
PROVIDERS: ATTEND Family Medicine
DX: Z12.31 Encounter for screening mammogram for malignant neoplasm of breast (principal); Z78.0 Asymptomatic menopausal state
CPT/HCPCS: 77063; 77067

== ENCOUNTER → 2022-06-27 | Outpatient (CLI) | payer MEDICARE, OTHER ==
[2022-06-27 13:19] VITALS: BP 103/70; PULSE 106; TEMP 98.3; BMI 39.3
--- NOTE | 2022-06-27 13:59 | P.HPBAR ---
Bariatric H&P - History & Physicial H&P Date: 06/27/22 History & Physicial: Visit/CC: bypass consult Patient initial contact: Initial weight: 127.006 kg Initial weight in pounds: 280.00 Height: 5 ft 7 in Initial BMI: 43.8 Last weight: Current weight: 113.852 kg Current weight in pounds: 251.00 Current BMI: 39.3 [place] body weight (based on NIH guidelines): 61.235 kg Excess body weight loss: 20.0% The patient is a 56 year-old F who presents for Bariatric Assessment. She comes in looking for revisional surgery from a band, sleeve and now gastric bypass. Recommend assessment for complications for sleeve gastrectomy. Recommend EGD. She is encouraged to seek second opinions. Past Medical History Past Medical History: Hyperlipidemia, Hypertension Additional Past Medical History / Comment(s): Polycystic Ovarian Disease, TMJ, tinnitus History of Any Multi-Drug Resistant Organisms: None Reported Past Surgical History: Bariatric Surgery, Breast Surgery, Tonsillectomy Additional Past Surgical History / Comment(s): LAB BAND; lipoma removed from her back, moles removed from her breast carpal tunnel surgery right wrist 01-22-19, gastric sleeve 2019 Past Anesthesia/Blood Transfusion Reactions: No Reported Reaction Past Psychological History: Anxiety, Bipolar, Depression, Panic Disorder Smoking Status: Former smoker Past Alcohol Use History: None Reported Additional Past Alcohol Use History / Comment(s): OCCASIONAL SMOKES 1-2 CIG PER MONTH. Past Drug Use History: None Reported Additional Drug Use History / Comment(s): Pt. denies substance abuse. - Past Family History Mother Family Medical History: No Reported History Additional Family Medical History / Comment(s): . Surgical - Exam Vital Signs Temp Pulse BP 98.3 F 106 H 103/70 06/27/22 13:13 06/27/22 13:13 06/27/22 13:13 Bariatric Checklist Checklist: Plan: Checklist: EGD: 1. Hiatal hernia: 2. H. Pylori: HgbA1c: Vitamin D: Smoking: Light tobacco smoker Primary care physician referral: Elpidio Love Psychiatry clearance: Cardiology clearance: Sleep study: Diet journal: VTE risk score: VTE risk level: Rehab needs at discharge:
== END ==
LOC: BARWHC3 12:59
PROVIDERS: ATTEND Surgery Plastic and Reconstructive Surgery
DX: E66.01 Morbid (severe) obesity due to excess calories (principal); Z98.84 Bariatric surgery status; E78.5 Hyperlipidemia, unspecified; I10 Essential (primary) hypertension; Z88.1 Allergy status to other antibiotic agents; F17.200 Nicotine dependence, unspecified, uncomplicated
CPT/HCPCS: 99211

== ENCOUNTER → 2022-09-24 | Day surgery (SDC) | payer MEDICARE, OTHER ==
[2022-09-17 17:43] VITALS: BMI 38.8
[~2022-09-24] MED LIST changes: -COSYNTROPIN 0.25 MG VIAL IVP NR; +LACTATED RINGERS 1,000 ML IV SCH; +LIDOCAINE 1% (10MG/ML) FOR IV START INTRADERMA PRN; +LIDOCAINE 2% INJ 20 MG/ML (2 ML VIAL) ONE; +PROPOFOL 10 MG/ML 20 ML VIAL IV ONE; -SODIUM CHLORIDE 0.9% 500 ML 500 ML in EMPTY BAG 1 BAG IV PRN
--- NOTE | 2022-09-24 07:44 | P.GSHP ---
History of Present Illness H&P Date: 09/24/22 CHIEF COMPLAINT: Colon screen HISTORY OF PRESENT ILLNESS: The patient is a 56-year-old female who presents for colon screen. Lower endoscopy was offered for further evaluation and management. PAST MEDICAL HISTORY: Please see list. PAST SURGICAL HISTORY: Please see list. MEDICATIONS: Please see list. ALLERGIES: Please see list. SOCIAL HISTORY: No illicit drug use FAMILY HISTORY: No reports of Crohn disease or ulcerative colitis. REVIEW OF ORGAN SYSTEMS: CONSTITUTIONAL: No reports of fevers or chills. PHYSICAL EXAM: VITAL SIGNS: Stable GENERAL: Well-developed pleasant in no acute distress. HEENT: No scleral icterus. Extraocular movements grossly intact. Moist buccal mucosa. NECK: Supple without lymphadenopathy. CHEST: Unlabored respirations. Equal bilateral excursions. CARDIOVASCULAR: Regular rate and rhythm. Distal 2+ pulses. ABDOMEN: Soft, nontender, nondistended. MUSCULOSKELETAL: No clubbing, cyanosis, or edema. ASSESSMENT: 1. Colon screen. PLAN: 1. Recommend proceeding with a lower endoscopy Past Medical History Past Medical History: Hearing Disorder / Deafness, Hypertension Additional Past Medical History / Comment(s): Polycystic Ovarian Disease, TMJ, tinnitus History of Any Multi-Drug Resistant Organisms: None Reported Past Surgical History: Bariatric Surgery, Orthopedic Surgery, Tonsillectomy Additional Past Surgical History / Comment(s): LAB BAND; lipoma removed from her back, moles removed from her breast, carpal tunnel surgery BILATERAL wrist 01-22-19, cubital tunnel release L elbow, gastric sleeve 2020 Past Anesthesia/Blood Transfusion Reactions: No Reported Reaction Additional Past Anesthesia/Blood Transfusion Reaction / Comment(s): Pt has never received blood Past Psychological History: Anxiety, Bipolar, Depression Smoking Status: Former smoker Past Alcohol Use History: None Reported Additional Past Alcohol Use History / Comment(s): Past OCCASIONAL SMOKER 1-2 CIG PER MONTH. Past Drug Use History: None Reported - Past Family History Mother Family Medical History: No Reported History Additional Family Medical History / Comment(s): . Medications and Allergies Home Medications Medication Instructions Recorded Confirmed Type Cholecalciferol [Vitamin D3 (25 2,000 unit PO QAM 11/11/19 09/17/22 History Mcg = 1000 Iu)] Gabapentin [Neurontin] 600 mg PO BID 11/11/19 09/17/22 History Lurasidone [Latuda] 20 mg PO HS 11/11/19 09/17/22 History lamoTRIgine [LaMICtal] 250 mg PO BID 11/11/19 09/17/22 History Iron 65 mg PO BID 05/23/22 09/17/22 History Tolterodine ER [Detrol LA] 4 mg PO QAM 06/27/22 09/17/22 History Losartan/Hydrochlorothiazide 1 tab PO QAM 08/24/22 09/17/22 History [Losartan-Hctz 100-25 mg Tab] Omeprazole 20 mg PO HS 08/24/22 09/17/22 History amLODIPine [Norvasc] 10 mg PO QAM 08/24/22 09/17/22 History Nf-Lipo Flavonoid 1 tab PO TID 09/17/22 09/17/22 History Sertraline [Zoloft] 125 mg PO DAILY 09/17/22 09/17/22 History Allergies Allergy/AdvReac Type Severity Reaction Status Date / Time ciprofloxacin [From Cipro] AdvReac BLOOD IN Verified 09/17/22 17:32 STOOL
[2022-09-24 08:34] VITALS: TEMP 97.4
--- NOTE | 2022-09-24 09:52 | P.PCN ---
Date of Procedure: 09/24/22 Description of Procedure: PREOPERATIVE DIAGNOSIS: Colonoscopy screening POSTOPERATIVE DIAGNOSIS: Tubular adenoma descending colon Sigmoid diverticulosis Internal hemorrhoids, grade 2 OPERATION: Colonoscopy to the ileocecal valve and appendiceal orifice, cecum Colonoscopy with cold forceps biopsy SURGEON: Alejandrina Mast MD. ANESTHESIA: MAC. INDICATIONS: The patient is an 56-year-old female who presents for colon screening. Benefits and risks were described and informed consent was obtained. DESCRIPTION OF PROCEDURE: The patient had undergone Golytely. The patient had been brought into the operating room and laid in the left lateral decubitus position. After adequate intravenous sedation, the rectum was examined with 2% lidocaine jelly. The prostate was unremarkable. External hemorrhoids were encountered. The rectal tone was within normal limits. No lesions were palpated in the rectal vault. An Olympus colonoscope was advanced until the cecum, ileocecal valve and appendiceal orifice were clearly viewed. The prep was fair. Sigmoid diverticulosis was encountered. Colonic polyps were found and removed. No evidence of focal colitis was found. Retroflexion of the scope demonstrated grade 2 internal hemorrhoids without active bleeding or inflammation. The colon was desufflated. The patient had tolerated the procedure well. Withdrawal time was over 6 minutes. FINDINGS: Aronchick preparation quality scale 2+ (1-5) Internal hemorrhoids, grade 2 External hemorrhoids, grade 2. No arteriovenous malformations. Sigmoid diverticulosis Removal of 2 polyps: - Cold forceps biopsy at descending colon 2, 4 to 5 mm polyp. No focal colitis. RECOMMENDATIONS: Lower endoscopy in 3 years, 2025 Plan - Discharge Summary Discharge Rx Participant: No New Discharge Prescriptions: Continue lamoTRIgine [LaMICtal] 250 mg PO BID Lurasidone [Latuda] 20 mg PO HS Cholecalciferol [Vitamin D3 (25 Mcg = 1000 Iu)] 2,000 unit PO QAM Gabapentin [Neurontin] 600 mg PO BID amLODIPine [Norvasc] 10 mg PO QAM Sertraline [Zoloft] 125 mg PO DAILY Iron 65 mg PO BID Tolterodine ER [Detrol LA] 4 mg PO QAM Losartan/Hydrochlorothiazide [Losartan-Hctz 100-25 mg Tab] 1 tab PO QAM Omeprazole 20 mg PO HS Nf-Lipo Flavonoid 1 tab PO TID Discharge Medication List Cholecalciferol [Vitamin D3 (25 Mcg = 1000 Iu)] 2,000 unit PO QAM 09/30/20 [History] Gabapentin [Neurontin] 600 mg PO BID 11/11/19 [History] Lurasidone [Latuda] 20 mg PO HS 11/11/19 [History] lamoTRIgine [LaMICtal] 250 mg PO BID 11/11/19 [History] Iron 65 mg PO BID 05/23/22 [History] Tolterodine ER [Detrol LA] 4 mg PO QAM 06/27/22 [History] Losartan/Hydrochlorothiazide [Losartan-Hctz 100-25 mg Tab] 1 tab PO QAM 08/24/22 [History] Omeprazole 20 mg PO HS 08/24/22 [History] amLODIPine [Norvasc] 10 mg PO QAM 08/24/22 [History] Nf-Lipo Flavonoid 1 tab PO TID 09/17/22 [History] Sertraline [Zoloft] 125 mg PO DAILY 09/17/22 [History] [facility] [facility] Patient Instructions/Handouts: Colorectal Polyps (GEN), Diverticulosis Diet (GEN), Diverticulosis (GEN) Activity/Diet/Wound Care/Special Instructions: Lower endoscopy in 3 years, 2025 Discharge Disposition: HOME SELF-CARE
[2022-09-24 10:16] VITALS: BP 123/79; PULSE 73; RESP 20
== END | disposition home or self-care (01) ==
LOC: ORWHC2ENDO 08:09
PROVIDERS: ATTEND Surgery Plastic and Reconstructive Surgery
DX: Z12.11 Encounter for screening for malignant neoplasm of colon (principal); K63.5 Polyp of colon; K57.30 Diverticulosis of large intestine without perforation or abscess without bleeding; K64.1 Second degree hemorrhoids; I10 Essential (primary) hypertension; Z98.890 Other specified postprocedural states; Z98.84 Bariatric surgery status; Z87.891 Personal history of nicotine dependence; Z88.1 Allergy status to other antibiotic agents; Z79.899 Other long term (current) drug therapy
CPT/HCPCS: 88305; 45380; J2704; J2001

== ENCOUNTER → 2022-10-10 | Outpatient (CLI) | payer MEDICARE, OTHER ==
[2022-10-10 13:54] VITALS: BP 100/68; PULSE 81; TEMP 98.8; BMI 39.0
--- NOTE | 2022-10-10 14:49 | P.BASOAP ---
Subjective Progress Note Date: 10/10/22 Went over revision requirements for bariatric. Weight watchers for weight loss per her choice. Needs maintained weight loss. Tow Truck Dispatcher advised. Highest 280 pounds. Needs 180 pounds. Objective - Vital Signs Vital signs: Vital Signs Temp 98.8 F 10/10/22 13:47 Pulse 81 10/10/22 13:47 Resp BP 100/68 10/10/22 13:47 Pulse Ox FiO2 Intake & Output 10/09/22 10/10/22 10/10/22 18:59 06:59 18:59 Weight 113.171 kg Assessment/Plan Plan: Date: 10/10/22 Initial Weight: 127.006 kg Initial BMI: 43.8 Current Weight: 113.171 kg Current BMI: 39.0 Type of Surgery: Total Volume in Band: Previous Volume: Volume Removed: Volume Added: Band Size:
== END ==
LOC: BARWHC3 13:35
PROVIDERS: ATTEND Surgery Plastic and Reconstructive Surgery
DX: Z53.9 Procedure and treatment not carried out, unspecified reason (principal)
CPT/HCPCS: 99211

== ENCOUNTER → 2023-06-14 | Outpatient (CLI) | payer MEDICARE, OTHER ==
--- NOTE | 2023-06-17 19:25 | MM ---
Reason for Exam: Screening (asymptomatic). Last screening mammogram was performed 12 month(s) ago. Patient History: Menarche at age 13. Patient has no children. Postmenopausal. Hormonal Contraceptives for 12 years from age 14 until age 26. Risk Values: Maite 5 year model risk: 1.4%. NCI Lifetime model risk: 9.9%. Prior Study Comparison: 02/26/2020 Bilateral Screening Mammogram, [facility]. 06/08/2021 Bilateral Screening Mammogram, [facility]. 06/11/2022 Bilateral MG 3D screening mammo w/cad, [facility]. Tissue Density: There are scattered areas of fibroglandular density. Findings: Analyzed By CAD. There is no suspicious group of microcalcifications or new suspicious mass in either breast. Overall Assessment: Negative, BI-RAD 1 Management: Screening Mammogram of both breasts in 1 year. . Patient should continue monthly self-breast exams. A clinical breast exam by your physician is recommended on an annual basis. This exam should not preclude additional follow-up of suspicious palpable abnormalities. Note on Maite scores and lifetime risk: 1. A Maite score greater than 3% is considered moderate risk. If this is the case, consider specialist referral to assess eligibility for a risk reducing agent. 2. If overall lifetime risk for the development of breast cancer is 20% or higher, the patient may qualify for future screening with alternating mammogram and breast MRI. Electronically signed and approved by: Jean-Claude Gillis M.D. Radiologist
== END | disposition home or self-care (01) ==
LOC: RADMAMWWP 07:40
PROVIDERS: ATTEND Family Medicine
DX: Z12.31 Encounter for screening mammogram for malignant neoplasm of breast (principal); Z78.0 Asymptomatic menopausal state
CPT/HCPCS: 77063; 77067

== ENCOUNTER → 2023-11-22 | Outpatient (CLI) | payer MEDICARE, OTHER ==
--- NOTE | 2023-11-22 10:48 | MM ---
Reason for Exam: Clinical finding. Last screening mammogram was performed 5 month(s) ago. Indicated Problems: Other indicated problem of the right side for 3 Month(s). Patient History: Menarche at age 13. Patient has no children. Postmenopausal. Hormonal Contraceptives for 12 years from age 14 until age 26. Risk Values: Maite 5 year model risk: 1.5%. NCI Lifetime model risk: 9.7%. Tissue Density: There are scattered areas of fibroglandular density. Findings: Analyzed By CAD. There is deformity of the right breast secondary to recent trauma. Traumatic oil cyst is noted at the approximate 12:00 position. No solid masses are seen within either breast. No suspicious microcalcifications are detected. Overall Assessment: Benign, BI-RAD 2 Management: Screening Mammogram of both breasts in 1 year. . Results were given to the patient verbally at the time of exam. Patient should continue monthly self-breast exams. A clinical breast exam by your physician is recommended on an annual basis. This exam should not preclude additional follow-up of suspicious palpable abnormalities. Note on Maite scores and lifetime risk: 1. A Maite score greater than 3% is considered moderate risk. If this is the case, consider specialist referral to assess eligibility for a risk reducing agent. 2. If overall lifetime risk for the development of breast cancer is 20% or higher, the patient may qualify for future screening with alternating mammogram and breast MRI. [facility], , 11/22/2023 10:45 AM. Electronically signed and approved by: Freddie Lynn M.D. Radiologis
== END | disposition home or self-care (01) ==
LOC: RADMAMWWP 10:22
PROVIDERS: ATTEND Surgery
CPT/HCPCS: 77062; 77066